=== PATIENT | female | born 1975 | race Native Hawaiian/Other Pacific Islander ===

== ENCOUNTER 2017-04-29 17:15 | Observation (INO) | payer OTHER ==
[2017-04-29 17:43] VITALS: BMI 32.9
--- NOTE | 2017-04-29 21:23 | OBHP ---
Datetime: 04/29/2017 20:43 IP Adm Impression: Term, intrauterine IP Admit Plan: Observation/Evaluation Admit Comment, IP Provider: 41 yo [id number] 05/09 by 8wk us and lmp/07/15 presents w/ c/o leakage of marjorie ar fluid and brown colored blood. denies gush of fluid. denies ctxs. +good fm + h/o HSV. she denies hsv outbreak currently or with preg pobxh: [id number] pmhx: denies shx: denies etoh, drugs or tobacco medic: pnv; valtrex I: 38.5wk intermittent variables gbs+ P: prolonged monitoring. plan d/w pt. Extremities - PN: Normal Abdomen - PN: Normal Neurologic - PN: Normal HEENT - PN: Normal General - PN: Normal Presentation-Admit: Vertex Membranes, Provider: Intact Comments, ACOG Physical Exam: rpr-nr;hiv neg; hepBneg; ri; O+ obus: jason 11; s c/w d. gbs postive Pool Provider: Negative Nitrazine Provider: Positive EGA AdmitDate IP: 38.5 IP Chief Complaint: Suspected ruptured membranes; Vaginal bleeding NICHD Variability Prov Fetus A: Moderate 6-25bpm Dilatation, Provider: 0 Effacement, Provider: 0 Station, Provider: -3 Genitourinary Exam: Normal
[2017-04-29] MEDS ORDERED: Lactated Ringer's 1,000 ML IV SCH (21:45)
[2017-04-29 22:20] LABS: BASO % 0.4 % (0.0-2.0); EOS # 0.1 K/uL (0.0-0.7); HEMOGLOBIN 12.9 g/dL (12.0-16.0); LYMPH # 2.6 K/uL (1.0-4.3); MEAN CELL VOLUME 85.7 fl (81.0-99.0); MEAN CORPUSCULAR HEMOGLOBIN 28.5 pg (27.0-31.0); MEAN CORPUSCULAR HGB CONC 33.2 g/dL (33.0-37.0); MEAN PLATELET VOLUME 10.7 fl (7.2-11.7); MONO # 0.5 K/uL (0.0-0.8); MONO % 5.8 % (0.0-10.0); NEUT # 5.6 K/uL (1.8-7.0); NEUT % 63.8 % (50.0-75.0); NRBC % 0.1 % (0.0-0.0); RBC 4.52 Mil/uL (3.80-5.20); RED CELL DISTRIBUTION WIDTH 14.6 % (11.5-14.5); WHITE BLOOD COUNT 8.8 K/uL (4.8-10.8)
[2017-04-29 22:28] LABS: SQUAMOUS EPITHIAL 2 /hpf (0-5); URINE BILIRUBIN NEGATIVE (NEGATIVE); URINE BLOOD SMALL (NEGATIVE); URINE CLARITY SLIGHTY-CLOUDY (Clear); URINE COLOR STRAW (YELLOW); URINE GLUCOSE (UA) NEG (Normal); URINE LEUKOCYTE ESTERASE NEG Leu/uL (Negative); URINE NITRATE NEGATIVE (NEGATIVE); URINE PROTEIN NEGATIVE (NEGATIVE); URINE UROBILINOGEN 0.2-1.0 mg/dL (0.2-1.0)
[2017-04-29 22:35] LABS: ALB/GLOB RATIO 1.2 (1.0-2.1); ALT/SGPT 31 U/L (9-52); AST/SGOT 37 U/L (14-36); BLOOD UREA NITROGEN 9 mg/dl (7-17); CALCIUM 10.3 mg/dL (8.4-10.2); GFR AFRICAN-AMERICAN > 60; GFR NON-AFRICAN AMERICAN > 60
[2017-04-30] MEDS ORDERED: Oxytocin 30 UNITS in Sodium Chloride 0.9% 500 ML IV SCH (08:15)
[2017-04-30] MEDS ORDERED: Lactated Ringer's 1,000 ML IV SCH ×2 (08:30→09:30)
[2017-04-30] MEDS ORDERED: Bupivacaine HCl 0.25% PF (10 ml) Inj ONE (08:40)
[2017-04-30] MEDS ORDERED: Fentanyl/Bupivacaine HCl 250 ML EPI ONE (08:40)
--- NOTE | 2017-04-30 11:14 | US ---
PROCEDURE: Limited obstetrical ultrasound examination HISTORY: roxy evaluation- pt c/o srom. COMPARISON: Not available TECHNIQUE: Transabdominal FINDINGS: The examination demonstrates a single live intrauterine gestation in cephalic presentation. The heart rate is 125 beats per minute. A grossly normal quantity of amniotic fluid is visualized. The ROXY is 11.1 cm, within normal limits. A normal anterior fundal placenta is identified. There is no evidence of placenta previa. The cervix measures 2.5 cm length. This is slightly shortened. biometry yields a gestational age of 38 weeks 2 days. The CHRISTINE by ultrasound is 05/11/2017. The EFW is 3403 g. anatomy is not evaluated on the basis of this examination. IMPRESSION: Single live intrauterine gestation in cephalic presentation. heart rate 125 beats per minute. Normal amniotic fluid volume. Cervix slightly shortened. No placenta previa. EFW 3403 g
== END 2017-04-30 01:01 | disposition home or self-care (01) ==
LOC: H.EROB2 17:15 → INTOOBSV 21:39 → H.L&D 21:39
PROVIDERS: ADMIT Obstetrics & Gynecology; ATTEND Obstetrics & Gynecology
DX: O33.9 Maternal care for disproportion, unspecified (principal); Z3A.38 38 weeks gestation of pregnancy; O98.82 Other maternal infectious and parasitic diseases complicating childbirth; B95.1 Streptococcus, group B, as the cause of diseases classified elsewhere
CPT/HCPCS: 76815; 80053; 81003; 83615; 85025; 86850; 86900; 99285; G0378

== ENCOUNTER 2017-04-30 06:32 | Inpatient (IN) | payer OTHER ==
[2017-04-29 17:43] VITALS: BMI 32.9
[2017-04-30] MEDS ORDERED: Lactated Ringer's 1,000 ML IV SCH ×2 (08:10)
[2017-04-30] MEDS ORDERED: Oxytocin 30 UNITS in Sodium Chloride 0.9% 500 ML IM ONE (11:45)
[2017-04-30] MEDS ORDERED: Lidocaine 1% Inj (20ml) ONE (13:33)
[2017-04-30] MEDS ORDERED: Oxytocin 30 UNITS in Sodium Chloride 0.9% 500 ML IV ONE (14:13)
[2017-04-30] MEDS ORDERED: Oxycodone/Acetaminophen 5/325 mg Tab PO PRN (16:55)
[2017-04-30] MEDS ORDERED: Benzocaine/Menthol SPRAY TOP PRN (16:55)
--- NOTE | 2017-04-30 17:54 | OBDS ---
DELIVERY PERSONNEL Delivery Doctor: Ramon Staley MD Manager Of Merchandising: Argelia Anesthesiologist: Bunny Pa MD Resident: Dr Evans MATERNAL INFORMATION Delivery Anesthesia: Epidural Medications in Delivery: Pitocin Estimated Blood Loss (ml): 100 Placenta Cultured: No Maternal Complications: None Provider Comments: Delivered live. 4:32 PM the patient was placed suction on the perineum and transf erred to the maternal chest. The placenta was delivered at 4:37 PM intact. 3 vessels noted. Estimated blood loss was 100 mL, there was a first-degree vaginal laceration which was repaired with 2-0 rapid e. The mother tolerated the procedure well the patient went to the [facility]aby [facility] with Apgars of 9 and 9 LABOR SUMMARY EDC: 05/08/2017 00:00 No. Babies in Womb: 1 Attempted: No Labor Anesthesia: Epidural LABOR INFORMATION Reason for Induction: Not Applicable Onset of Labor: 04/30/2017 08:00 Complete Dilatation: 04/30/2017 15:25 Oxytocin: Augmentation Group B Beta Strep: Positive Antibiotics # of Doses: Pen G 5million units/Pen G 2.5 million units Antibiotics Time of Last Dose: 09:35/13:35 Steroids Given: None Reason Steroids Not Administered: Not Applicable Other Reason Not Administered: n/a MEMBRANES Membranes Rupture Method: Spontaneous Rupture of Membranes: 04/30/2017 16:08 Length of Rupture (hrs): 0.40 Amniotic Fluid Color: Clear Amniotic Fluid Amount: Moderate Amniotic Fluid Odor: Normal STAGES OF LABOR Stage 1 hrs: 7 Stage 1 min: 25 Stage 2 hrs: 1 Stage 2 min: 7 Stage 3 hrs: 0 Stage 3 min: 5 Total Time in Labor hrs: 8 Total Time in Labor min: 37 VAGINAL DELIVERY Laceration Extension: First Degree Laceration Repair: Yes Initial Vag Sponge Count: laps=5 Final Vag Sponge Count: Laps=5 Initial Vag Sharps Count: 2 Final Vag Sharps Count: 2 Sharps Count Correct: Yes Count Comment: all accounted BABY A INFORMATION Delivery Date/Time: 04/30/2017 16:32 Method of Delivery: Vaginal Born in Route : No : N/A Forceps: N/A Vacuum Extraction: N/A Shoulder Dystocia : No SHOULDER DYSTOCIA BABY A Infant Delivery Date/Time: 04/30/2017 16:32 PRESENTATION/POSITION BABY A Presentation: Cephalic Cephalic Presentation: Face Breech Presentation: N/A PLACENTA INFORMATION BABY A Placenta Delivery Time : 04/30/2017 16:37 Placenta Method of Delivery: Spontaneous Placenta Status: Delivered SCORES BABY A Heart Rate 1 min: >100 bpm Resp Effort 1 min: Good Cry Reflex Irritability 1 min: Cough or Sneeze or Pulls Away Muscle Tone 1 min: Active Motion Color 1 min: Completely Skelp Resuscitation Effort 1 min: Tactile Stimulation SCORE 1 MIN: 10 Heart Rate 5 min: >100 bpm Resp Effort 5 min: Good Cry Reflex Irritability 5 min: Cough or Sneeze or Pulls Away Muscle Tone 5 min: Active Motion Color 5 min: Body Skelp, Extremities Blue Resuscitation Effort 5 min: N/A SCORE 5 MIN: 9 INFANT INFORMATION BABY A Gestational Age at Delivery: 38.6 Gestational Status: Term Infant Outcome : Liveborn Condition : Stable Infant Sex: Male IDENTIFICATION/MEDS BABY A ID Band Number: [id number] ID Band Location: Left Leg; Left Arm Vitamin K Given : Not Given Erythromycin Given: Not Given WEIGHT/LENGTH BABY A Infant Birthweight (gms): 3090 Infant Weight (lb): 6 Weight (oz): 13 CORD INFORMATION BABY A No. Cord Vessels: 3 Nuchal Cord : Around Neck x2, Loose Nuchal Cord Other: n/a True Knot: n/a Infant Cord pH Baby Arterial: n/a Infant Cord pH Baby Venous: n/a Cord Blood Taken: Yes Banking/Donate Info: n/a Suction: Mouth; Nose ASSESSMENT BABY A Complications: None Physical Findings at Delivery: Within Normal Limits Infant Respirations: Appears Normal Palletizer/ALS Called : No Care By: Alexis/Shasih Transferred To: Remains with Mother
[2017-04-30] MEDS: Oxycodone/Acetaminophen 5/325 mg Tab PO PRN (22:34)
[2017-05-01] MEDS: Oxycodone/Acetaminophen 5/325 mg Tab PO PRN (03:44)
[2017-05-01 06:30] LABS: BASO # 0.1 K/uL (0.0-0.2); BASO % 0.6 % (0.0-2.0); EOS # 0.1 K/uL (0.0-0.7); EOS % 1.4 % (0.0-4.0); HEMOGLOBIN 12.3 g/dL (12.0-16.0); LYMPH # 2.6 K/uL (1.0-4.3); LYMPH % 28.9 % (20.0-40.0); MEAN CELL VOLUME 86.2 fl (81.0-99.0); MEAN CORPUSCULAR HEMOGLOBIN 28.8 pg (27.0-31.0); MEAN CORPUSCULAR HGB CONC 33.4 g/dL (33.0-37.0); MEAN PLATELET VOLUME 10.1 fl (7.2-11.7); MONO # 0.5 K/uL (0.0-0.8); MONO % 5.6 % (0.0-10.0); NEUT # 5.6 K/uL (1.8-7.0); NEUT % 63.5 % (50.0-75.0); NRBC % 0.1 % (0.0-0.0); RBC 4.25 Mil/uL (3.80-5.20); RED CELL DISTRIBUTION WIDTH 14.4 % (11.5-14.5); WHITE BLOOD COUNT 8.9 K/uL (4.8-10.8)
--- NOTE | 2017-05-01 07:53 | OBPPN ---
Datetime: 05/01/2017 07:45 PP Pain Prov: Within normal limits PP Abdomen/Uterus Prov: Normal PP Lochia Prov: Normal PP Extremities Prov: Normal PP Progress Prov: Normal PP Impression Prov: Normal progression PP Plan Prov: Continue present management PP Progress Note Prov: PPD 1 s/p , doing well, trying to breast pump Baby was transferred to [facility] for defect Pt may want to be discharged today Vital Signs Provider PP: Reviewed
[2017-05-01] MEDS ORDERED: Oxycodone/Acetaminophen 5/325 mg Tab PO PRN ×2 (07:57)
[2017-05-01] MEDS ORDERED: Benzocaine/Menthol SPRAY TOP PRN (07:57)
[2017-05-01] MEDS ORDERED: Multivitamin With Minerals Tab PO SCH ×2 (09:00)
--- NOTE | 2017-05-01 16:31 | OBDCSUM ---
Datetime: 05/01/2017 16:30 Discharged to, Provider: Home Follow up at, Provider: Ilya Disch Instr Activity: Normal activity; May Shower Disch Instr Diet: Regular Discharge Instructions, Provider: Routine instructions given Discharge Diagnosis, Provider: Term Delivered Discharge Time: 05/01/2017 16:30 Follow up in weeks, Provider: 1-2 weeks Contraception discussed, Prov: No Disch Activity Restrictions: No exercising; No lifting; No driving; Nothing in vagina - Crook, tampons, douche
[2017-05-01 22:13] VITALS: BP 137/82; PULSE 81; RESP 20; TEMP 98.9; O2SAT 100
== END 2017-05-01 17:50 | disposition home or self-care (01) | DRG 775 ==
LOC: H.EROB2 06:32 → H.L&D 08:10 → H.OB/GYN 20:40
PROVIDERS: ADMIT Obstetrics & Gynecology; ATTEND Obstetrics & Gynecology
PROC: 10E0XZZ Delivery of Products of Conception, External Approach (ICD-10-PCS; principal; 2017-04-30)
PROC: 0HQ9XZZ Repair Perineum Skin, External Approach (ICD-10-PCS; 2017-04-30)
PROC: 4A1HXCZ Monitoring of Products of Conception, Cardiac Rate, External Approach (ICD-10-PCS; 2017-04-30)
DX: O69.81X0 Labor and delivery complicated by cord around neck, without compression, not applicable or unspecified (principal); O70.0 First degree perineal laceration during delivery; O09.523 Supervision of elderly multigravida, third trimester; Z37.0 Single live birth; Z3A.38 38 weeks gestation of pregnancy